=== PATIENT | male | born 1980 | race Caucasian/White ===

== ENCOUNTER → 2017-05-27 | Outpatient (CLI) | payer OTHER ==
--- NOTE | 2017-05-27 10:48 | US ---
EXAMINATION TYPE: US abdomen complete DATE OF EXAM: 05/27/2017 COMPARISON: NONE CLINICAL HISTORY: R10.11 RUQ Pain. RUQ pain 2 weeks ago EXAM MEASUREMENTS: Liver Length: 21.9 cm Gallbladder Wall: 0.2 cm CBD: 0.4 cm Spleen: 13.3 cm Right Kidney: 13.5 x 6.4 x 5.4 cm Left Kidney: 13.7 x 7.4 x 5.7 cm *Technical limitations due to patient's body habitus and large amount of overlying bowel content Pancreas: limited evaluation due to overlying bowel Liver: enlarged, attenuating, hypoechoic area adjacent to GB = 1.9 x 1.3cm - focal sparing Gallbladder: no evidence of stones Evidence for sonographic Diaz's sign: no CBD: appears wnl Spleen: upper limits of normal Right Kidney: enlarged Left Kidney: enlarged, with a dense echogenic area mid = 1.1cm Upper IVC: wnl Abd Aorta: wnl The intrahepatic portion of the IVC and proximal abdominal aorta are within normal limits. There is no evidence of cholelithiasis. Common bile duct is unremarkable. The visualized portions of the pa ncreas are homogenous. The spleen is unremarkable. Kidneys are symmetric and free of hydronephrosis . No renal lesions are seen. IMPRESSION: 1. Hepatomegaly with the hepatic steatosis. 2. Nonobstructing left-sided nephrolithiasis.
== END | disposition home or self-care (01) ==
LOC: RADUSWWP 08:49
PROVIDERS: ATTEND Family Medicine
DX: N20.0 Calculus of kidney (principal); K76.0 Fatty (change of) liver, not elsewhere classified; R16.0 Hepatomegaly, not elsewhere classified
CPT/HCPCS: 76700

== ENCOUNTER 2018-04-02 14:31 | Emergency (ER) | payer OTHER ==
[2018-04-02 14:48] VITALS: RESP 18
[2018-04-02] MEDS ORDERED: ONDANSETRON 4 MG/2 ML VIAL IVP STA (15:01)
[2018-04-02] MEDS ORDERED: SODIUM CHLORIDE 0.9% 1,000 ML IV STA (15:01)
--- NOTE | 2018-04-02 15:40 | ED ---
General Adult HPI - General Chief complaint: Nausea/Vomiting/Diarrhea Stated complaint: Nausea Time Seen by Provider: 04/02/18 14:48 Source: patient, RN notes reviewed, old records reviewed Mode of arrival: ambulatory Limitations: no limitations - History of Present Illness Initial comments: 38-year-old male history of hypertension, no other chronic medical problems presenting with two-week history of nausea vomiting and diarrhea. Patient has had crampy abdominal pain throughout this course. He states he's had loose stools, no watery diarrhea for the past 2 weeks. He's had significant nausea vomiting although he has not had vomiting in the past 3 days. Patient denies fever or chills. Denies known sick contacts. Denies recent antibiotic use. Denies recent travel. - Related Data Home Medications Medication Instructions Recorded Confirmed Chlorthalidone [Hygroton] 25 mg PO DAILY 04/02/18 04/02/18 Dextroamphetamine/Amphetamine 10 mg PO BID 04/02/18 04/02/18 [Adderall] Ibuprofen [Motrin] 600 mg PO Q8HR PRN 04/02/18 04/02/18 Lisinopril 40 mg PO DAILY 04/02/18 04/02/18 Allergies Allergy/AdvReac Type Severity Reaction Status Date / Time No Known Allergies Allergy Verified 04/02/18 14:55 Review of Systems ROS Statement: Those systems with pertinent positive or pertinent negative responses have been documented in the HPI. ROS Other: All systems not noted in ROS Statement are negative. Past Medical History Past Medical History: Hypertension History of Any Multi-Drug Resistant Organisms: None Reported Past Surgical History: No Surgical Hx Reported Past Psychological History: ADD/ADHD Smoking Status: Never smoker Past Alcohol Use History: Occasional Past Drug Use History: None Reported General Exam Limitations: no limitations General appearance: alert, in no apparent distress Head exam: Present: atraumatic, normocephalic Eye exam: Present: normal appearance, PERRL ENT exam: Present: mucous membranes dry Neck exam: Present: normal inspection. Absent: tenderness, meningismus Respiratory exam: Present: normal lung sounds bilaterally. Absent: respiratory distress Cardiovascular Exam: Present: regular rate, normal rhythm Extremities exam: Present: normal inspection, normal capillary refill. Absent: pedal edema Neurological exam: Present: alert, oriented X3, CN II-XII intact. Absent: motor sensory deficit Psychiatric exam: Present: normal affect, normal mood Skin exam: Present: warm, intact, diaphoretic Course Vital Signs 04/02/18 04/02/18 14:44 16:28 Temperature 98.2 F 99.1 F Pulse Rate 99 83 Respiratory 18 18 Rate Blood Pressure 107/72 114/55 O2 Sat by Pulse 99 97 Oximetry Medical Decision Making - Medical Decision Making 38-year-old male with 2 weeks of nausea vomiting and loose stool. Workup in the emergency department reveals x-ray negative for obstruction or intraperitoneal free air, normal CBC, normal electrolytes, total bili mildly elevated 1.4 and ALT mildly elevated at 75, sound is obtained of the gallbladder and liver, this is negative for any acute pathology, there is fatty infiltrate throughout the liver. Urinalysis is negative. Patient unable to give stool sample in the emergency department. Given the normal labs, well- appearing nature this patient. He will be discharged with outpatient follow-up at this time. - Lab Data Result diagrams: 04/02/18 15:10 04/02/18 15:10 Lab Results 04/02/18 04/02/18 04/02/18 Range/Units 15:10 15:10 15:45 WBC 8.2 (3.8-10.6) k/uL RBC 5.42 (4.30-5.90) m/uL Hgb 15.3 (13.0-17.5) gm/dL Hct 44.7 (39.0-53.0) % MCV 82.4 (80.0-100.0) fL MCH 28.1 (25.0-35.0) pg MCHC 34.1 (31.0-37.0) g/dL RDW 12.9 (11.5-15.5) % Plt Count 153 (150-450) k/uL Neutrophils % (Manual) 44 % Lymphocytes % (Manual) 51 % Monocytes % (Manual) 5 % Neutrophils # (Manual) 3.61 (1.3-7.7) k/uL Lymphocytes # (Manual) 4.18 (1.0-4.8) k/uL Monocytes # (Manual) 0.41 (0-1.0) k/uL Nucleated RBCs 0 (0-0) /100 WBC Manual Slide Review Performed Sodium 136 L (137-145) mmol/L Potassium 3.9 (3.5-5.1) mmol/L Chloride 98 (98-107) mmol/L Carbon Dioxide 27 (22-30) mmol/L Anion Gap 11 mmol/L BUN 16 (9-20) mg/dL Creatinine 0.72 (0.66-1.25) mg/dL Est GFR (CKD-EPI)AfAm >90 (>60 ml/min/1.73 sqM) Est GFR (CKD-EPI)NonAf >90 (>60 ml/min/1.73 sqM) Glucose 108 H (74-99) mg/dL Calcium 9.0 (8.4-10.2) mg/dL Total Bilirubin 1.4 H (0.2-1.3) mg/dL AST 44 (17-59) U/L ALT 75 H (21-72) U/L Alkaline Phosphatase 52 (38-126) U/L Total Protein 7.1 (6.3-8.2) g/dL Albumin 4.2 (3.5-5.0) g/dL Lipase 112 (23-300) U/L Urine Color Yellow Urine Appearance Clear (Clear) Urine pH 6.5 (5.0-8.0) Ur Specific [place] 1.012 (1.001-1.035) Urine Protein Trace H (Negative) Urine Glucose (UA) Negative (Negative) Urine Ketones Negative (Negative) Urine Blood Negative (Negative) Urine Nitrite Negative (Negative) Urine Bilirubin Negative (Negative) Urine Urobilinogen <2.0 (<2.0) mg/dL Ur Leukocyte Esterase Negative (Negative) Disposition Clinical Impression: Dehydration, Nausea vomiting and diarrhea Disposition: HOME SELF-CARE Condition: Good Instructions (If sedation given, give patient instructions): Acute Nausea and Vomiting (ED), Acute Diarrhea (ED) Is patient prescribed a controlled substance at d/c from ED?: No Referrals: Myles Chambers MD [Primary Care Provider] - 1-2 days Time of Disposition: 17:12
[2018-04-02 15:43] LABS: ALT 75 U/L (21-72); AST 44 U/L (17-59); Albumin 4.2 g/dL (3.5-5.0); Alkaline Phosphatase 52 U/L (38-126); Anion Gap 11 mmol/L; Blood Urea Nitrogen 16 mg/dL (9-20); Carbon Dioxide 27 mmol/L (22-30); Chloride 98 mmol/L (98-107); Glucose 108 mg/dL (74-99); Lipase 112 U/L (23-300); Potassium 3.9 mmol/L (3.5-5.1); Sodium 136 mmol/L (137-145); Total Bilirubin 1.4 mg/dL (0.2-1.3); Total Protein 7.1 g/dL (6.3-8.2)
--- NOTE | 2018-04-02 15:43 | XR ---
EXAMINATION TYPE: XR KUB DATE OF EXAM: 04/02/2018 COMPARISON: NONE HISTORY: Nausea and vomiting TECHNIQUE: 2 views upright FINDINGS: There is no sign of intestinal obstruction or pneumoperitoneum. Fecal pattern is normal. Aissatou ng bases are clear. There are no pathologic calcifications over the kidneys. IMPRESSION: Nonacute abdomen.
[2018-04-02 15:47] LABS: HCT 44.7 % (39.0-53.0); HGB 15.3 gm/dL (13.0-17.5); MCH 28.1 pg (25.0-35.0); MCHC 34.1 g/dL (31.0-37.0); MCV 82.4 fL (80.0-100.0); Mean Platelet Volume 6.9; Platelet Count 153 k/uL (150-450); RBC 5.42 m/uL (4.30-5.90); RDW 12.9 % (11.5-15.5); WBC 8.2 k/uL (3.8-10.6)
[2018-04-02 16:06] LABS: Appearance,Urine Clear (Clear); Bilirubin,Urine Negative (Negative); Blood,Urine Negative (Negative); Color,Urine Yellow; Glucose,Urine (UA) Negative (Negative); Ketones,Urine Negative (Negative); Leukocyte Esterase,Urine Negative (Negative); Nitrite,Urine Negative (Negative); PH, Urine 6.5 (5.0-8.0); Protein,Urine Trace (Negative); Specific Gravity,Urine 1.012 (1.001-1.035); Urobilinogen,Urine <2.0 mg/dL (<2.0)
[2018-04-02 16:22] LABS: Lymphocytes # (M) 4.18 k/uL (1.0-4.8); Monocytes # (M) 0.41 k/uL (0-1.0); Neutrophils # (M) 3.61 k/uL (1.3-7.7); Neutrophils % (M) 44 %; Nucleated Red Blood Cells 0 /100 WBC (0-0); Total Cells Counted 100
[2018-04-02 16:28] VITALS: BP 114/55; PULSE 83; TEMP 99.1
--- NOTE | 2018-04-02 17:09 | US ---
EXAMINATION TYPE: US gallbladder DATE OF EXAM: 04/02/2018 COMPARISON: US CLINICAL HISTORY: Pain. epigastric pain EXAM MEASUREMENTS: Liver Length: 13.1 cm Gallbladder Wall: 0.3 cm CBD: 0.4 cm Right Kidney: 13.6 x 6.0 x 6.9 cm Pancreas: visualized portions wnl Liver: fatty sparing noted around gallbladder. Gallbladder: No stones seen Evidence for sonographic Diaz's sign: No CBD: wnl Right Kidney: No hydronephrosis or masses seen IMPRESSION: There is evidence of some fatty infiltration of the liver. No gallstones or dilated ducts .
== END 2018-04-02 17:33 | disposition home or self-care (01) ==
LOC: EC 14:31
DX: E86.0 Dehydration (principal); R11.2 Nausea with vomiting, unspecified; R19.7 Diarrhea, unspecified; K76.0 Fatty (change of) liver, not elsewhere classified; I10 Essential (primary) hypertension; F90.9 Attention-deficit hyperactivity disorder, unspecified type; Z79.899 Other long term (current) drug therapy
CPT/HCPCS: 36415; 80053; 83690; 85025; 81003; 74018; 76705; 99284; 96374; 96361; J2405

== ENCOUNTER 2019-05-15 22:46 | Emergency (ER) | payer OTHER ==
[2019-05-15 22:53] VITALS: RESP 18
--- NOTE | 2019-05-15 23:23 | ED ---
General Adult HPI - General Chief complaint: Syncope Stated complaint: Fall, Head Injury Time Seen by Provider: 05/15/19 22:53 Source: patient, family, RN notes reviewed, old records reviewed Mode of arrival: ambulatory Limitations: no limitations - History of Present Illness Initial comments: 39-year-old male presenting for evaluation of syncope and head trauma. Patient was having a sliver from his right index finger removed, he felt lightheaded, looked pale and passed out striking his head on the wall. He was unconscious for approximately 1 minute. Denied any preceding chest pain or palpitation. He does admit to one or 2 glasses of wine and some marijuana this evening. No vomiting or diarrhea. He has been eating and drinking well throughout the day. According to his he's had repetitive questioning and has some amnesia. - Related Data Home Medications Medication Instructions Recorded Confirmed Chlorthalidone [Hygroton] 25 mg PO DAILY 04/02/18 04/02/18 Dextroamphetamine/Amphetamine 10 mg PO BID 04/02/18 04/02/18 [Adderall] Ibuprofen [Motrin] 600 mg PO Q8HR PRN 04/02/18 04/02/18 Lisinopril 40 mg PO DAILY 04/02/18 04/02/18 Allergies Allergy/AdvReac Type Severity Reaction Status Date / Time No Known Allergies Allergy Verified 05/15/19 22:48 Review of Systems ROS Statement: Those systems with pertinent positive or pertinent negative responses have been documented in the HPI. ROS Other: All systems not noted in ROS Statement are negative. Past Medical History Past Medical History: Hypertension History of Any Multi-Drug Resistant Organisms: None Reported Past Surgical History: No Surgical Hx Reported Past Psychological History: ADD/ADHD, Anxiety Smoking Status: Never smoker Past Alcohol Use History: Occasional Past Drug Use History: Marijuana General Exam Limitations: no limitations General appearance: alert, in no apparent distress Head exam: Present: normocephalic, other (Occipital contusion small hematoma no laceration or active bleeding) Eye exam: Present: normal appearance, PERRL, EOMI ENT exam: Present: normal exam, mucous membranes moist Neck exam: Present: normal inspection. Absent: tenderness, meningismus Respiratory exam: Present: normal lung sounds bilaterally. Absent: respiratory distress, wheezes Cardiovascular Exam: Present: regular rate, normal rhythm GI/Abdominal exam: Present: soft. Absent: distended, tenderness Back exam: Present: normal inspection, full ROM Neurological exam: Present: alert, oriented X3, CN II-XII intact, other (No focal findings, no ataxia). Absent: motor sensory deficit Psychiatric exam: Present: normal affect, normal mood Skin exam: Present: warm, dry, intact Course Vital Signs 05/15/19 05/16/19 22:48 00:03 Temperature 97.7 F 98.3 F Pulse Rate 87 94 Respiratory 18 18 Rate Blood Pressure 147/79 147/75 O2 Sat by Pulse 100 100 Oximetry EKG Findings - EKG Comments: EKG Findings:: EKG: Normal sinus rhythm, rate of 85, MA interval 154, QRS dura tion 108, QTC [address] segment elevation Medical Decision Making - Medical Decision Making 39-year-old male with syncopal episode likely vasovagal while having a sliver removed with subsequent head trauma. Patient is amnestic to the event with some repetitive questioning. Head CT is performed this is negative for intracranial hemorrhage. CT cervical spine negative for fracture subluxation. EKG is performed, this is sinus rhythm with no arrhythmia or ischemic changes. Patient is amnestic with some repetitive questioning consistent with concussion. He can be closely observed at home. They will return with any worsening or changing symptoms. Disposition Clinical Impression: Vasovagal syncope, Concussion Disposition: HOME SELF-CARE Condition: Fair Instructions (If sedation given, give patient instructions): Syncope (ED), Concussion (ED) Is patient prescribed a controlled substance at d/c from ED?: No Referrals: Myles Chambers MD [Primary Care Provider] - 1-2 days Time of Disposition: 00:05
--- NOTE | 2019-05-15 23:54 | CT ---
EXAMINATION TYPE: CT brain cspine wo con DATE OF EXAM: 05/15/2019 COMPARISON: None HISTORY: Syncope, Fall, Hit back of head Headache. Neck pain CT DLP: 1509.30 mGycm Automated exposure control for dose reduction was used. Ventricles and sulci appear normal. There is no mass effect nor midline shift. There is no sign of in tracranial hemorrhage. Calvarium is intact. Skull base is intact. Cervical vertebra have fairly normal spacing and alignment. Posterior elements are intact. Facet join ts are intact. There is no evidence of a fracture. IMPRESSION: Negative CT scan of the brain. Negative CT scan of the cervical spine.
[2019-05-16 00:04] VITALS: BP 147/75; PULSE 94; TEMP 98.3
== END 2019-05-16 00:20 | disposition home or self-care (01) ==
LOC: EC 22:46
DX: R55 Syncope and collapse (principal); S06.0X1A Concussion with loss of consciousness of 30 minutes or less, initial encounter; I10 Essential (primary) hypertension; F90.9 Attention-deficit hyperactivity disorder, unspecified type; Z79.899 Other long term (current) drug therapy; W18.09XA Striking against other object with subsequent fall, initial encounter
CPT/HCPCS: 70450; 72125; 93005; 99284